=== PATIENT | female | born 1975 | race Caucasian/White ===

== ENCOUNTER 2019-11-30 13:02 | Inpatient (IN) ==
[2019-11-30] MEDS ORDERED: ACETAMINOPHEN 325 MG TABLET PO PRN (14:00)
[2019-11-30] MEDS ORDERED: ALBUTEROL/IPRATROPIUM 3 ML NEB RESP TX PRN (14:00)
[2019-11-30 15:00] LABS: Basophils % 0.3 % (0.0-0.8); Eosinophils # 0.1 10*3/uL (0.0-0.87); Immature Granulocytes % 0.6 %; Immature Granulocytes Absolute 0.06 #; Lymphocytes # 2.2 10*3/uL (1.4-4.0); Lymphocytes % 23.7 % (21.3-54.2); Mean Corpuscular HGB Conc 33.3 GM/DL (32-36); Mean Corpuscular Volume 91.3 FL (87-102); Mean Platelet Volume 9.4 FL (9.6-12.0); Monocytes % 5.8 % (1.7-12.7); Neutrophils % 68.6 % (38.7-73.9); Platelet Count 425 T/CUMM (130-400); Red Blood Count 4.93 MC/CUMM (3.8-5.5); White Blood Count 9.5 T/CUMM (4-12)
[2019-11-30 15:17] LABS: Albumin 3.9 G/DL (3.4-5.0); Bilirubin,Total 0.8 MG/DL (0.2-1.0); Calcium 9.2 MG/DL (8.5-10.1); Total Protein 8.1 G/DL (6.4-8.3)
[2019-11-30] MEDS: LACTATED RINGERS 1,000 ML IV SCH ×2 (15:55→23:52)
[2019-11-30] MEDS: HYDROmorphone 2 MG/1 ML VIAL IV PRN ×3 (15:59→21:07)
[2019-11-30] MEDS: cefOXitin 2,000 MG in SYRINGE 1 EACH IV SCH ×2 (16:03→21:11)
[2019-12-01] MEDS: ONDANSETRON 4 MG/2 ML VIAL IV PRN ×4 (00:29→22:40)
[2019-12-01] MEDS: HYDROmorphone 2 MG/1 ML VIAL IV PRN ×5 (03:08→21:55)
[2019-12-01] MEDS: cefOXitin 2,000 MG in SYRINGE 1 EACH IV SCH ×4 (03:13→20:13)
[2019-12-01 06:17] LABS: Basophils % 0.3 % (0.0-0.8); Eosinophils # 0.1 10*3/uL (0.0-0.87); Eosinophils % 1.3 % (0.00-10.9); Hematocrit 37.6 VOL% (35.7-47.0); Hemoglobin 12.7 GM/DL (12.0-16.0); Immature Granulocytes % 0.6 %; Immature Granulocytes Absolute 0.04 #; Lymphocytes # 2.5 10*3/uL (1.4-4.0); Lymphocytes % 36.2 % (21.3-54.2); Mean Corpuscular HGB Conc 33.8 GM/DL (32-36); Mean Corpuscular Volume 89.3 FL (87-102); Mean Platelet Volume 9.7 FL (9.6-12.0); Monocytes % 8.1 % (1.7-12.7); Neutrophils % 53.5 % (38.7-73.9); Platelet Count 310 T/CUMM (130-400); Red Blood Count 4.21 MC/CUMM (3.8-5.5); Red Cell Distribution Width 12.7 % (9.3-17.3); White Blood Count 6.9 T/CUMM (4-12)
[2019-12-01 06:38] LABS: Albumin 3.1 G/DL (3.4-5.0); Bilirubin,Total 0.9 MG/DL (0.2-1.0); Calcium 8.6 MG/DL (8.5-10.1); Osmolality,Calculated 271.7 MOS/KG (273-304); Total Protein 6.5 G/DL (6.4-8.3)
[2019-12-01] MEDS ORDERED: PHENOL 1.4% THROAT SPRAY 177 ML BOTTLE PO PRN (07:52)
[2019-12-01] MEDS: LACTATED RINGERS 1,000 ML IV SCH ×2 (08:17→17:37)
[2019-12-01] MEDS: PANTOPRAZOLE 40 MG VIAL IV SCH (08:35)
[2019-12-01] MEDS ORDERED: GALCANEZUMAB GNLM 120 MG SUBCUT SCH (09:15)
[2019-12-01] MEDS ORDERED: SUMAtriptan 6 MG/0.5 ML VIAL SUBCUT SCH (09:30)
[2019-12-01] MEDS ORDERED: SUMAtriptan 6 MG/0.5 ML VIAL SUBCUT PRN (10:11)
[2019-12-01] MEDS: POTASSIUM CHLORIDE RIDER 10 MEQ in PREMIX 1 EACH IV PRN ×4 (12:26→17:36)
[2019-12-01] MEDS: KETOROLAC 15 MG/1 ML VIAL IV PRN ×2 (15:00→21:54)
[2019-12-02] MEDS: HYDROmorphone 2 MG/1 ML VIAL IV PRN ×10 (00:59→22:45)
[2019-12-02] MEDS: LACTATED RINGERS 1,000 ML IV SCH ×5 (01:00→20:42)
[2019-12-02] MEDS: cefOXitin 2,000 MG in SYRINGE 1 EACH IV SCH ×2 (05:00→10:08)
[2019-12-02] MEDS: ONDANSETRON 4 MG/2 ML VIAL IV PRN ×3 (05:02→22:44)
[2019-12-02 06:07] LABS: Basophils % 0.1 % (0.0-0.8); Eosinophils # 0.1 10*3/uL (0.0-0.87); Hematocrit 35.4 VOL% (35.7-47.0); Hemoglobin 11.8 GM/DL (12.0-16.0); Immature Granulocytes % 0.3 %; Immature Granulocytes Absolute 0.03 #; Lymphocytes # 1.9 10*3/uL (1.4-4.0); Lymphocytes % 20.4 % (21.3-54.2); Mean Corpuscular HGB Conc 33.3 GM/DL (32-36); Mean Platelet Volume 9.8 FL (9.6-12.0); Monocytes % 7.3 % (1.7-12.7); Neutrophils % 70.9 % (38.7-73.9); Platelet Count 290 T/CUMM (130-400); Red Blood Count 3.89 MC/CUMM (3.8-5.5); Red Cell Distribution Width 12.6 % (9.3-17.3); White Blood Count 9.3 T/CUMM (4-12)
[2019-12-02 06:20] LABS: Calcium 8.4 MG/DL (8.5-10.1); Osmolality,Calculated 268.8 MOS/KG (273-304)
[2019-12-02] MEDS ORDERED: BUPIVACAINE MPF 0.25% 30 ML VIAL ONE (07:53)
[2019-12-02] MEDS: PANTOPRAZOLE 40 MG VIAL IV SCH (08:29)
[2019-12-02] MEDS ORDERED: INDOCYANINE GREEN 25 MG VIAL IV ONE (08:55)
[2019-12-02] MEDS ORDERED: TISSUE ADHESIVE 1 EACH APPLICATOR TOP ONE (08:55)
[2019-12-02] MEDS ORDERED: BUPIVACAINE 0.5% 50 ML VIAL ONE (08:55)
[2019-12-02] MEDS ORDERED: LIDOCAINE 1%/EPI INJ 20 ML VIAL ONE (08:55)
[2019-12-02] MEDS ORDERED: SUGAMMADEX 200 MG/2 ML VIAL IV ONE (10:54)
[2019-12-02] MEDS ORDERED: LIDOCAINE 2% 5 ML VIAL ONE (11:39)
[2019-12-02] MEDS ORDERED: propofoL 200 MG/20 ML VIAL IV ONE (11:39)
[2019-12-02] MEDS ORDERED: fentaNYL 100 MCG/2 ML VIAL ONE (11:39)
[2019-12-02] MEDS ORDERED: SEVOFLURANE 1 UNIT/15 MINUTE INH ONE (11:39)
[2019-12-02] MEDS ORDERED: LACTATED RINGERS 1,000 ML IV ONE (11:40)
[2019-12-02] MEDS ORDERED: GLYCOPYRROLATE 0.4 MG/2 ML VIAL ONE (11:40)
[2019-12-02] MEDS ORDERED: ROCURONIUM 100 MG/10 ML VIAL IV ONE (11:40)
[2019-12-02] MEDS ORDERED: ONDANSETRON 4 MG/2 ML VIAL ONE ×2 (11:40→11:41)
[2019-12-02] MEDS ORDERED: MIDAZOLAM 2 MG/2 ML VIAL ONE (11:40)
[2019-12-02] MEDS ORDERED: SUCCINYLCHOLINE 200 MG/10 ML VIAL ONE (11:40)
[2019-12-02] MEDS ORDERED: PHENYLEPHRINE 1 MG/10 ML SYRINGE IV ONE (11:40)
[2019-12-02] MEDS ORDERED: DEXAMETHASONE 4 MG/1 ML VIAL ONE (11:40)
[2019-12-02] MEDS ORDERED: HYDROmorphone 2 MG/1 ML VIAL ONE (11:41)
[2019-12-02] MEDS ORDERED: ONDANSETRON 4 MG/2 ML VIAL IV PRN (11:44)
[2019-12-02] MEDS ORDERED: FLUCONAZOLE INJ 200 MG in PREMIX 1 EACH IV ONE (16:13)
[2019-12-02] MEDS: MICONAZOLE 2% VAG CREAM 45 GM TUBE VAG SCH (20:44)
[2019-12-03] MEDS: MICONAZOLE 2% VAG CREAM 45 GM TUBE VAG SCH ×2 (00:41→22:14)
[2019-12-03] MEDS: HYDROmorphone 2 MG/1 ML VIAL IV PRN ×8 (01:23→22:13)
[2019-12-03] MEDS: LACTATED RINGERS 1,000 ML IV SCH ×3 (03:25→22:46)
[2019-12-03] MEDS: ONDANSETRON 4 MG/2 ML VIAL IV PRN ×3 (05:35→19:58)
[2019-12-03 06:03] LABS: Basophils % 0.2 % (0.0-0.8); Eosinophils % 0.1 % (0.00-10.9); Hemoglobin 12.1 GM/DL (12.0-16.0); Immature Granulocytes % 0.7 %; Immature Granulocytes Absolute 0.08 #; Lymphocytes # 1.2 10*3/uL (1.4-4.0); Lymphocytes % 10.2 % (21.3-54.2); Mean Corpuscular HGB Conc 31.8 GM/DL (32-36); Mean Corpuscular Volume 93.8 FL (87-102); Mean Platelet Volume 9.9 FL (9.6-12.0); Monocytes % 5.8 % (1.7-12.7); Platelet Count 346 T/CUMM (130-400); Red Blood Count 4.05 MC/CUMM (3.8-5.5); Red Cell Distribution Width 12.4 % (9.3-17.3)
[2019-12-03 06:25] LABS: Calcium 8.9 MG/DL (8.5-10.1); Osmolality,Calculated 269.8 MOS/KG (273-304)
[2019-12-03] MEDS: PANTOPRAZOLE 40 MG VIAL IV SCH (09:28)
[2019-12-04] MEDS: HYDROmorphone 2 MG/1 ML VIAL IV PRN ×9 (00:28→21:29)
[2019-12-04] MEDS: LACTATED RINGERS 1,000 ML IV SCH ×2 (05:27→17:24)
[2019-12-04] MEDS: PANTOPRAZOLE 40 MG VIAL IV SCH (09:55)
[2019-12-04] MEDS: diphenhydrAMINE CAP 25 MG CAPSULE PO PRN (19:11)
[2019-12-04] MEDS: MICONAZOLE 2% VAG CREAM 45 GM TUBE VAG SCH (21:30)
[2019-12-05] MEDS: HYDROmorphone 2 MG/1 ML VIAL IV PRN ×7 (01:08→20:33)
[2019-12-05] MEDS: ONDANSETRON 4 MG/2 ML VIAL IV PRN (01:13)
[2019-12-05] MEDS: LACTATED RINGERS 1,000 ML IV SCH ×3 (04:46→22:01)
[2019-12-05 09:01] LABS: Basophils % 0.2 % (0.0-0.8); Eosinophils % 0.3 % (0.00-10.9); Hematocrit 40.9 VOL% (35.7-47.0); Hemoglobin 13.5 GM/DL (12.0-16.0); Immature Granulocytes % 0.5 %; Immature Granulocytes Absolute 0.05 #; Lymphocytes # 0.8 10*3/uL (1.4-4.0); Lymphocytes % 8.4 % (21.3-54.2); Mean Corpuscular Volume 91.3 FL (87-102); Mean Platelet Volume 9.1 FL (9.6-12.0); Monocytes % 5.9 % (1.7-12.7); Neutrophils % 84.7 % (38.7-73.9); Platelet Count 319 T/CUMM (130-400); Red Blood Count 4.48 MC/CUMM (3.8-5.5); Red Cell Distribution Width 12.8 % (9.3-17.3); White Blood Count 9.8 T/CUMM (4-12)
[2019-12-05] MEDS: PANTOPRAZOLE 40 MG VIAL IV SCH (09:11)
[2019-12-05 10:16] LABS: Apearance,Urine CLEAR (Clear); Bacteria,Urine Moderate /HPF (Few); Bilirubin,Urine Negative (Negative); Blood, Urine Moderate mg/dL (Negative); Glucose,Urine (UA) Negative (Negative); Ketones,Urine Negative (Negative); Mucus,Urine Occasional /LPF (Occasional); Nitrite,Urine Negative (Negative); Protein,Urine Negative; RBC,Urine 3 /HPF (0-4); Squamous Epithelial Cell,Urine Occasional /HPF (0-10); Urine Color Straw (Yellow); Urine Specific Gravity 1.004 (1.001-1.035); Urine Urobilinogen < 2.0 EU/DL (0.2-1.0); WBC,Urine 1 /HPF (0-6)
[2019-12-05] MEDS: MICONAZOLE 2% VAG CREAM 45 GM TUBE VAG SCH (20:43)
[2019-12-06] MEDS: HYDROmorphone 2 MG/1 ML VIAL IV PRN ×7 (00:16→21:02)
[2019-12-06] MEDS: LACTATED RINGERS 1,000 ML IV SCH ×3 (02:52→17:18)
[2019-12-06] MEDS: PANTOPRAZOLE 40 MG VIAL IV SCH (08:51)
[2019-12-06 10:29] LABS: Ferritin 184.9 ng/ml (8-252)
[2019-12-06] MEDS: cefTRIAXone 1,000 MG in SYRINGE 1 EACH IV SCH (12:46)
[2019-12-06] MEDS: guaiFENesin/DM ER 600-30 MG TABLET PO SCH ×2 (12:46→21:02)
[2019-12-06] MEDS: AZITHROMYCIN INJ 500 MG in SODIUM CHLORIDE 0.9% 250 ML IV SCH (12:49)
[2019-12-06] MEDS ORDERED: diphenhydrAMINE 2% CREAM 28 GM TUBE TOP PRN (15:14)
[2019-12-06] MEDS: MICONAZOLE 2% VAG CREAM 45 GM TUBE VAG SCH (21:02)
[2019-12-06] MEDS: HYDROXYCHLOROQUINE 200 MG TABLET PO SCH (21:02)
[2019-12-06] MEDS: diphenhydrAMINE CAP 25 MG CAPSULE PO PRN (21:03)
[2019-12-07] MEDS: HYDROmorphone 2 MG/1 ML VIAL IV PRN ×6 (01:09→22:37)
[2019-12-07] MEDS: LACTATED RINGERS 1,000 ML IV SCH ×2 (03:07→14:25)
[2019-12-07 06:26] LABS: Basophils % 0.2 % (0.0-0.8); Eosinophils # 0.2 10*3/uL (0.0-0.87); Eosinophils % 2.7 % (0.00-10.9); Immature Granulocytes % 0.7 %; Immature Granulocytes Absolute 0.06 #; Lymphocytes # 1.6 10*3/uL (1.4-4.0); Mean Corpuscular HGB Conc 33.3 GM/DL (32-36); Mean Corpuscular Volume 92.2 FL (87-102); Mean Platelet Volume 9.7 FL (9.6-12.0); Monocytes % 9.4 % (1.7-12.7); Platelet Count 260 T/CUMM (130-400); Red Cell Distribution Width 12.9 % (9.3-17.3); White Blood Count 8.5 T/CUMM (4-12)
[2019-12-07 06:39] LABS: Red Blood Count 3.58 MC/CUMM (3.8-5.5)
[2019-12-07 06:55] LABS: Calcium 8.4 MG/DL (8.5-10.1); Osmolality,Calculated 272.5 MOS/KG (273-304)
[2019-12-07] MEDS ORDERED: ZINC SULFATE 220 MG CAPSULE PO SCH (09:00)
[2019-12-07] MEDS ORDERED: GALCANEZUMAB GNLM 120 MG SUBCUT SCH (09:15)
[2019-12-07] MEDS: guaiFENesin/DM ER 600-30 MG TABLET PO SCH ×2 (09:25→21:02)
[2019-12-07] MEDS: HYDROXYCHLOROQUINE 200 MG TABLET PO SCH (09:25)
[2019-12-07] MEDS: PANTOPRAZOLE 40 MG VIAL IV SCH (09:25)
[2019-12-07] MEDS: cefTRIAXone 1,000 MG in SYRINGE 1 EACH IV SCH (09:25)
[2019-12-07] MEDS: AZITHROMYCIN INJ 500 MG in SODIUM CHLORIDE 0.9% 250 ML IV SCH (10:07)
[2019-12-07] MEDS ORDERED: POTASSIUM CHLORIDE 20 MEQ TABLET PO ONE (12:00)
[2019-12-07] MEDS ORDERED: HYDROXYCHLOROQUINE 200 MG TABLET PO SCH (21:00)
[2019-12-07] MEDS: MICONAZOLE 2% VAG CREAM 45 GM TUBE VAG SCH (21:18)
[2019-12-07] MEDS ORDERED: SIMETHICONE CHEW 125 MG TABLET PO PRN (21:43)
[2019-12-08] MEDS: LACTATED RINGERS 1,000 ML IV SCH ×2 (00:19→10:25)
[2019-12-08] MEDS: HYDROmorphone 2 MG/1 ML VIAL IV PRN ×2 (01:04→10:52)
[2019-12-08] MEDS ORDERED: AZITHROMYCIN 250 MG TABLET PO SCH (09:00)
[2019-12-08] MEDS: guaiFENesin/DM ER 600-30 MG TABLET PO SCH (09:19)
[2019-12-08] MEDS: PANTOPRAZOLE 40 MG VIAL IV SCH (09:19)
[2019-12-08] MEDS: cefTRIAXone 1,000 MG in SYRINGE 1 EACH IV SCH (10:25)
[2019-12-08 10:56] VITALS: BP 133/68
== END 2019-12-08 12:24 | disposition home or self-care (01) | DRG 335 ==
LOC: N.3E → OBSVTOIN 13:43 → SUATTDRO 13:43 → N.2E 12-06 10:24
PROVIDERS: ADMIT Surgery; ATTEND Surgery